=== PATIENT | female | born 1990 | race Caucasian/White ===

== ENCOUNTER 2024-05-29 09:39 | Emergency (ER) | payer BC, SELFPAY ==
[2024-05-29 09:40] VITALS: BMI 29.0
[2024-05-29 09:44] VITALS: BP 121/63
[2024-05-29 09:48] VITALS: BP 121/63
--- NOTE | 2024-05-29 09:55 | ED.GENMED ---
History of Present Illness
General
Chief Complaint: Abdominal Pain
Source: patient
Time Seen by Provider: 05/29/24 09:42
History of Present Illness
History of Present Illness:
33yoF with a history of GERD presenting via EMS for evaluation of abdominal pain. Symptoms began <1 hour ago. Patient woke up from sleep and was initially pain free. She went to the bathroom and came back to bed. Upon lying down, she started to have
a burning pain in her epigastric region and her bilateral ribcage. She took a Gaviscon and Jenna-seltzer. She vomited 2x and her abdominal pain has subsided currently. She admits to eating ice cream last night and she has a history of lactose
intolerance. She denies any shortness of breath, diarrhea, dysuria, fevers. No previous abdominal surgeries. Her only current medication is semaglutide which she takes for weight loss.
Phy Exam
General Physical Exam
General Presentation: well appearing and no apparent distress
General age: appears stated age
General Skin: warm and dry
General Habitus: normal
General Mental: alert and anxious
ENT Exam
ENT Exam: normocephalic
Cardiovascular Exam
Cardiovascular Exam: regular rate/rhythm and no murmur
Pulmonary Exam
Pulmonary Exam: lungs clear, no respiratory distress, no rales, no crackles and no wheezing
Gastrointestinal Exam
Gastrointestinal Exam: soft, non distended and tender (Minimal tenderness in the epigastric region. No rebound or guarding. )
Sara Coma Scale
Eye Opening: Spontaneous
Verbal Response: Oriented
Motor Response: Obeys Commands
GCS Total Score: 15
Skin Exam
Skin Exam: normal color and warm/dry
Psychiatric Exam
Psychiatric Exam: anxious
Course
Orders/Labs/Results
Orders:
Orders
05/29/24 09:49
EKG [Electrocardiogram (*1)] Urgent
Reason for Study: Abdominal Pain
05/29/24 09:50
EKG- Treatment ONCE
05/29/24 09:52
Famotidine [Pepcid] 20 mg PO NOW STA
Ondansetron Orally Disint [Zofran Odt (Orally Disintegrating)] 4 mg PO NOW STA
Pantoprazole [Protonix] 40 mg PO NOW STA
05/29/24 09:53
Test Result ONCE
05/29/24 11:20
Crisis Consult Urgent
Reason for Consult: Eval
05/29/24 09:49
05/29/24 09:49
Vital Signs
Initial and Last Documented VS:
Initial Vital Signs
Temp Pulse Resp BP Pulse Ox
97.6 F 50 14 121/63 100
05/29/24 09:44 05/29/24 09:44 05/29/24 09:44 05/29/24 09:44 05/29/24 09:44
Last Documented Vital Signs
Temp Pulse Resp BP Pulse Ox
98.1 F 52 14 104/67 100
05/29/24 12:51 05/29/24 12:45 05/29/24 12:45 05/29/24 12:49 05/29/24 11:45
MDM/Problems Addressed
Differential Diagnosis Includes:
33yoF here with burning epigastric pain that began <1 hour ago. Associated with n/v. Hx of GERD. She is anxious but well appearing. She is afebrile and hemodynamically stable. No signs of peritonitis on abdominal exam. Differential diagnosis
includes but is not limited to: GERD, gastritis, PUD, pancreatitis, biliary colic, less likely ACS
Initial ED plan: Patient is refusing IV/labs at this time stating she is very fearful of needles and would like to trial PO meds first. Will check EKG and urine test. PO Pepcid, Protonix, and Zofran for symptoms.
*EKG
Interpreted by ED Provider?: Yes
EKG Intrepretation Date: 05/29/24
Heart Rate: 43
Rate: bradycardiac
Rhythm: sinus
[place]: normal axis
Interval: normal interval
QRS Pattern: right bundle branch block (incomplete)
Ischemia: no ischemia
*Critical Care Note
Total Time (30-74mins, 75-104mins- exclusive of procedures): Not Applicable
Update Note
Update Note:
Patient symptomatically improved after medications. She continues to decline blood work. Clinical presentation consistent with GERD. Patient is tearful on reassessment and reports uncontrolled anxiety and depression. Crisis was consulted who
provided outpatient resources. No SI/HI. No grounds for involuntary commitment and patient is not interested in 201 at this time. Patient is stable for discharge. Advised follow-up with PCP and GI. Strict ED return precautions were discussed.
She expressed understanding and is agreeable to plan. She was discharged in stable condition.
ED Attending Note
-
Portions of this chart may have been created with voice recognition software.� Occasional wrong word or��sound alike� substitutions may have occurred due to the inherent limitations of voice recognition software.
Discharge Plan
Departure
Patient Disposition: Home (Routine Discharge)
Date of Disposition: 05/29/24
Time of Disposition: 12:36
Patient with high blood pressure during this ER visit?: No
Discharge Problem:
GERD (gastroesophageal reflux disease), Anxiety
Instructions: Acid Reflux and GERD in Adults (DC)
Prescriptions:
No Action
semaglutide (weight loss) 1 mg/0.5 mL Pen Injector
1 mg SC QWEEK
Rx Instructions:
Sundays
Referrals:
Cristofer Hodge DO [Active] -
Yumiko Bay MD [Active] -
NONE,* [Family Provider] -
Activity Restrictions/Additional Instructions:
Take Pepcid 20mg twice a day as needed.
Please call on Friday to schedule a follow-up with a primary care provider and gastroenterology.
Return to the ER with any new or worsening symptoms.
Interventions
Interventions:
*Risk Screen - Suicide Last Done: 05/29/24 12:51
*General Assessment Last Done: 05/29/24 09:52
*Neglect/Abuse Screening Last Done: 05/29/24 09:52
ED- Fall Risk Assessment Last Done: 05/29/24 09:50
*ED COVID-19 Vaccine History Last Done: 05/29/24 09:52
*Nursing Disposition Last Done: 05/29/24 12:51
NN-[id number]-[id number] Assessment Last Done: 05/29/24 09:54
Discharge Date and Time
Discharge Date/Time: 05/29/24 12:52
Print Language: BELIZEAN
[2024-05-29] MEDS: PEPCID 20 MG PO (09:59)
[2024-05-29] MEDS: ZOFRAN ODT (ORALLY DISINTEGRATING) 4 MG PO (09:59)
[2024-05-29] MEDS: PROTONIX 40 MG PO (09:59)
[2024-05-29 10:00] VITALS: BP 113/67
[2024-05-29 11:00] VITALS: BP 110/77
[2024-05-29 12:01] VITALS: BP 105/85
[2024-05-29 12:49] VITALS: BP 104/67
== END 2024-05-29 12:52 | disposition home or self-care (01) ==
LOC: EMR 09:39
PROVIDERS: EMERGENCY PHYSICIAN Emergency Medicine
DX: K21.9 Gastro-esophageal reflux disease without esophagitis (principal); F41.9 Anxiety disorder, unspecified
CPT/HCPCS: 99283; 93005